=== PATIENT | female | born 1980 | race Caucasian/White ===

== ENCOUNTER 2016-08-13 13:34 | Emergency (ER) | payer SELFPAY ==
[~2016-08-13] VITALS: Ht 157.5 cm; Wt 86.0 kg
[2016-08-13 13:40] VITALS: BP 131/89
== END 2016-08-13 17:29 | disposition left against medical advice (07) ==
LOC: EDUNIT# 13:34 → EMS 13:36
DX: R30.0 Dysuria (principal); M54.5 Low back pain; Z53.21 Procedure and treatment not carried out due to patient leaving prior to being seen by health care provider